=== PATIENT | male | born 1950 | race Asian ===

== ENCOUNTER 2022-02-19 15:05 | Emergency (ER) | payer OTHER ==
[~2022-02-19] VITALS: Ht 170.2 cm; Wt 68.0 kg
--- NOTE | 2022-02-19 15:11 | NUR ---
Patient BIB EMS to bed 6 at this time.
[2022-02-19 15:12] VITALS: BP 137/80
--- NOTE | 2022-02-19 15:19 | NUR ---
CALLED [facility], CONFIRMED REPORT WAS MADE FOR [place]. CASE #[id number]
[2022-02-19] MEDS ORDERED: KETOROLAC 30 MG/ML VIAL IM ONE (15:20)
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
[2022-02-19] MEDS ORDERED: BACITRACIN OINT 500 UNITS/GM PKT TP ONE (15:40)
[2022-02-19] MEDS ORDERED: LIDOCAINE MPF 1% 10 MG/ML VIAL INJ ONE (16:10)
[2022-02-19] MEDS ORDERED: IBUP-2213 PO (17:00)
[2022-02-19] MEDS ORDERED: ACET-8386 PO (17:00)
--- NOTE | 2022-02-19 17:00 | NUR ---
Sugartong splint placed on pt's right arm during reduction procedure performed by Dr. Garzon. CMS intact before and after splint placement.
[2022-02-19 17:58] VITALS: BP 162/88
--- NOTE | 2022-02-19 17:59 | NUR ---
The patient's care was reviewed and supervised by Jannette Perez RN.
--- NOTE | 2022-02-19 17:59 | NUR ---
Patient discharged with v/s stable. Written and verbal after care instructions ABOUT WRIST FRACTURE given and explained. Patient alert, oriented and verbalized understanding of instructions. Ambulatory with steady gait. All questions addressed prior to discharge. ID band removed. Patient advised to follow up with PMD. Rx of IBUPROFEN AND NORCO 5-325 given. Patient educated on indication of medication including possible reaction and side effects. Opportunity to ask questions provided and answered.
== END 2022-02-19 17:59 | disposition home or self-care (01) ==
LOC: MED 15:05
DX: S52.571A Other intraarticular fracture of lower end of right radius, initial encounter for closed fracture (principal); S52.611A Displaced fracture of right ulna styloid process, initial encounter for closed fracture; E11.9 Type 2 diabetes mellitus without complications; I10 Essential (primary) hypertension; Z79.899 Other long term (current) drug therapy; W19.XXXA Unspecified fall, initial encounter; Y93.89 Activity, other specified; Y92.89 Other specified places as the place of occurrence of the external cause; Y99.8 Other external cause status
CPT/HCPCS: 25605; 73110; 96372; 99284; J1885; J2001

== ENCOUNTER 2022-03-16 21:50 | Emergency (ER) | payer OTHER ==
[~2022-03-16] VITALS: Ht 162.6 cm; Wt 68.0 kg
[~2022-03-16 21:50] MED LIST: ACET-8386 PO; IBUP-2213 PO
[2022-03-16 22:04] VITALS: BP 143/81
--- NOTE | 2022-03-16 22:38 | NUR ---
PATIENT LEFT WITHOUT BEING SEEN BY DR. Pacheco. NO FURTHER CARE PROVIDED FOR PATIENT.
== END 2022-03-16 22:38 | disposition left against medical advice (07) ==
LOC: MED 21:50
DX: T78.40XA Allergy, unspecified, initial encounter (principal); Z53.21 Procedure and treatment not carried out due to patient leaving prior to being seen by health care provider; X58.XXXA Exposure to other specified factors, initial encounter